=== PATIENT | male | born 1940 | race Caucasian/White ===

== ENCOUNTER 2020-12-14 09:10 | Inpatient (IN) | payer SELFPAY ==
[~2020-12-14] VITALS: Ht 188 cm; Wt 86.0 kg
--- NOTE | 2020-12-14 09:25 | NUR ---
PT MARISEL CRESPO FRIEND CALLED D/T FINDING PT SITTING IN WHEELCHAIR, NAKED W/ ALTERED MENTATION. PT IS DM, BLOOD SUGAR 249, INITIAL BP 80/50, 18 R FA STARTED, 200 NS SECOND BP 96/60. PT ON ROOM AIR, BUT 90%. HX PACEMAKER, AND DM. ASSUMED CARE OF PT. HE IS NAKED, REFUSING GOWN. ATTEMPTING TO CHECK PT IN AND PERFORM EKG AND BASIC VITALS AND PT IS COMBATIVE HITTING STAFF AND YELLING, "GET THE FUCK OFF ME". IS UNCOOPERATIVE W/ ASSESSMENT AND EITHER UNWILLING/UNABLE TO ANSWER QUESTIONS. DR. BUNN WAS WALKING BY ASKED IF HE WAS TAKING PT. HE CHECKED IN ON PATIENT AND IS AWARE ASSESSMENT IS INCOMPLETE. ORDERED 1 MG ATIVAN IV.
[2020-12-14] MEDS ORDERED: LORazepam 2 MG/ML, 1ML IVPush ONE ×2 (09:30→12:30)
[2020-12-14] MEDS ORDERED: SODIUM CHLORIDE FLUSH 10ML SYR IVF ONE (09:30)
[2020-12-14] MEDS ORDERED: LORazepam 2 MG/ML, 1ML ONE ×2 (09:31→12:36)
--- NOTE | 2020-12-14 09:46 | NUR ---
PT MEDICATED PER AUG. LAB BEDSIDE AND IS ATTEMPTING TO DRAW LABS NOW.
[2020-12-14 10:02] LABS: BASOPHILS % (AUTO) 0 % (0-1); EOSINOPHILS % (AUTO) 0 % (1-7); LYMPHOCYTES % (AUTO) 12 % (22-44); MEAN CORPUSCULAR HEMOGLOBIN 31.9 pg (27.5-34.5); MEAN CORPUSCULAR HGB CONC 35.1 g/dL (33.2-36.2); MEAN PLATELET VOLUME 8.9 fL (7.4-10.4); MONOCYTES % (AUTO) 6 % (2-9); NEUTROPHILS % (AUTO) 82 % (42-75); PLATELET COUNT 154 x10^3/uL (130-400); RED BLOOD COUNT 5.06 x10^6/uL (4.38-5.82); RED CELL DISTRIBUTION WIDTH 13.1 % (9.4-14.8)
--- NOTE | 2020-12-14 10:15 | NUR ---
ATIVAN WAS EFFECTIVE, ABLE TO OBTAIN LABS, EKG, PLACE BP CUFF. VSJyothi, NARCISA. BEDRAIL UPX2. CURTAIN OPEN AND IS ACROSS FROM NURSES WORK STATION.
[2020-12-14 10:20] LABS: ALBUMIN 3.8 g/dL (3.4-5.0); ANION GAP 5 mmol/L (5-15); CALCIUM 9.3 mg/dL (8.5-10.1); CHLORIDE 106 mmol/L (98-107); CREATININE 1.44 mg/dL (0.7-1.3)
[2020-12-14 10:47] LABS: ALANINE AMINOTRANSFERASE 25 U/L (12-78); ALKALINE PHOSPHATASE 82 U/L (45-117); TOTAL PROTEIN 7.1 g/dL (6.4-8.2)
--- NOTE | 2020-12-14 10:53 | NUR ---
PT SLEEPING IN RWINDOW ROCK, BLANKET COVERING PT HE REFUSED GOWN EARLIER. NARCISA DIAZ.
--- NOTE | 2020-12-14 11:42 | NUR ---
PT TO CT, INFORMED THEM OF PT BEING COMBATIVE, BUT IS MEDICATED AT THIS TIME W/ ATIVAN.
--- NOTE | 2020-12-14 12:27 | NUR ---
SCIENTIFIC GLASS BLOWER: ESTER RIVERA.
--- NOTE | 2020-12-14 12:40 | NUR ---
PT FOUND TRYING TO SWING LEGS OVER SIDERAIL, PULLED MANAGER TELEMETRY HAD HIM BECOME SITTER. [facility] BEDSIDE, ORDERED ATIVAN 1 MG IT HELPED EITHER. PT MEDICATED PER AUG. LAB BEDSIDE NOW DRAWING ADDITIONAL LABS. PT WAS INCONTINENT. CHANGING PT NOW.
[2020-12-14 12:51] LABS: HCT (SEDRATE) 48.8 % (39.2-51.8)
--- NOTE | 2020-12-14 13:25 | NUR ---
WAGNER PLACED W/ STERILE TECHNIQUE, SAMPLE COLLECTED AND WALKED DOWN TO LAB. SBAR REPORT GIVEN TO SUZI. PT READY FOR TRANSPORT.
[2020-12-14 13:49] LABS: MICROSCOPIC INDICATED
[2020-12-14 13:51] LABS: AMPHETAMINE SCREEN, URINE Negative (Negative)
[2020-12-14 13:55] LABS: BARBITURATE SCREEN, URINE Negative (Negative); BENZODIAZEPINE SCREEN, URINE Negative (Negative); CANNABINOID SCREEN, URINE Negative (Negative); COCAINE SCREEN, URINE Negative (Negative); METHADONE SCREEN, URINE Negative (Negative); OPIATE SCREEN, URINE Negative (Negative)
[2020-12-14 14:07] VITALS: BP 127/83
[2020-12-14] MEDS: SODIUM CHLORIDE 0.9% 1,000 ML IV SCH (16:06)
[2020-12-14] MEDS: ENOXAPARIN 40 MG/0.4 ML SQ SCH (18:11)
[2020-12-14 19:27] VITALS: BP 150/70
[2020-12-14 20:55] LABS: MICROSCOPIC INDICATED
[2020-12-15] MEDS: SODIUM CHLORIDE 0.9% 1,000 ML IV SCH ×3 (01:19→18:04)
[2020-12-15 02:15] VITALS: BP 88/51
[2020-12-15 05:37] LABS: BASOPHILS % (AUTO) 0 % (0-1); EOSINOPHILS % (AUTO) 1 % (1-7); LYMPHOCYTES % (AUTO) 23 % (22-44); MEAN CORPUSCULAR HEMOGLOBIN 32.2 pg (27.5-34.5); MEAN CORPUSCULAR HGB CONC 35.5 g/dL (33.2-36.2); MEAN PLATELET VOLUME 9.4 fL (7.4-10.4); MONOCYTES % (AUTO) 8 % (2-9); NEUTROPHILS % (AUTO) 68 % (42-75); PLATELET COUNT 148 x10^3/uL (130-400); RED CELL DISTRIBUTION WIDTH 12.9 % (9.4-14.8)
[2020-12-15 05:46] LABS: CHLORIDE 109 mmol/L (98-107)
[2020-12-15 05:47] LABS: ANION GAP 5 mmol/L (5-15); CALCIUM 8.7 mg/dL (8.5-10.1); CREATININE 0.99 mg/dL (0.7-1.3)
[2020-12-15] MEDS: ENOXAPARIN 40 MG/0.4 ML SQ SCH ×2 (06:18→17:13)
[2020-12-15 08:39] VITALS: BP 119/81
[2020-12-15] MEDS: INSULIN LISPRO 100 UNITS/ML, PEN SQ-INSULIN SCH ×3 (12:51→21:00)
[2020-12-15 13:18] VITALS: BP 108/65
[2020-12-15 19:11] VITALS: BP 128/77
[2020-12-16 00:45] VITALS: BP 119/60
[2020-12-16] MEDS: SODIUM CHLORIDE 0.9% 1,000 ML IV SCH ×2 (04:03→14:30)
[2020-12-16 06:02] LABS: ANION GAP 3 mmol/L (5-15); CALCIUM 8.6 mg/dL (8.5-10.1); CHLORIDE 112 mmol/L (98-107); CREATININE 0.94 mg/dL (0.7-1.3)
[2020-12-16] MEDS: ENOXAPARIN 40 MG/0.4 ML SQ SCH (06:24)
[2020-12-16 06:44] VITALS: BP 121/71
[2020-12-16] MEDS: INSULIN LISPRO 100 UNITS/ML, PEN SQ-INSULIN SCH ×3 (07:00→16:00)
[2020-12-16] MEDS ORDERED: ACET325T26 PO (12:14)
[2020-12-16 12:18] VITALS: BP 160/95
[2020-12-16] MEDS ORDERED: THIA100T27 PO (12:20)
[2020-12-16] MEDS ORDERED: ALOG6.252 PO (12:20)
[2020-12-16] MEDS ORDERED: CYAN100T22 PO (12:20)
[2020-12-16] MEDS ORDERED: NAPR-685 PO (12:20)
[2020-12-16] MEDS ORDERED: ASPI81TA59 PO (12:20)
[2020-12-16] MEDS ORDERED: ATOR-2 PO (12:20)
[2020-12-16] MEDS ORDERED: METF500T17 PO (12:20)
[2020-12-16 16:39] VITALS: BP 146/80
== END 2020-12-16 17:23 | disposition home or self-care (01) | DRG 71 ==
LOC: ED 10:06 → EDIP 12:36 → 3N 13:46
PROVIDERS: ADMIT Internal Medicine Infectious Disease; ATTEND Hospitalist
DX: G93.41 Metabolic encephalopathy (principal); N17.9 Acute kidney failure, unspecified; D72.829 Elevated white blood cell count, unspecified; E11.65 Type 2 diabetes mellitus with hyperglycemia; E87.6 Hypokalemia; E11.22 Type 2 diabetes mellitus with diabetic chronic kidney disease; Z95.0 Presence of cardiac pacemaker
CPT/HCPCS: 36415; 70450; 71045; 80048; 80053; 80307; 80320; 81001; 82140; 82306; 82550; 82570; 82607; 82962; 83036; 84145; 84300; 84443; 84550; 85025; 85651; 86140; 86592; 87086; 93005; 96374; 96376; G0378; J1650; G0480; J1815; J2060; J7030